=== PATIENT | female | born 1975 | race Caucasian/White ===

== ENCOUNTER 2020-06-20 13:59 | Outpatient (CLI) | payer BC, SELFPAY ==
[2020-06-20 14:28] LABS: Alanine Aminotransferase 22 U/L (4-35); Albumin Level 4.6 g/dL (3.5-5.1); Alkaline Phosphatase 92 U/L (38-126); Amylase 60 U/L (30-110); Aspartate Amino Transferase 24 U/L (14-36); Bilirubin,Total 0.6 mg/dL (0.2-1.3); Lipase 170 U/L (23-300)
== END 2020-06-20 14:00 | disposition home or self-care (01) ==
PROVIDERS: PCP Pediatrics; Visit Provider Surgery
DX: K80.10 Calculus of gallbladder with chronic cholecystitis without obstruction (principal); Z01.818 Encounter for other preprocedural examination
CPT/HCPCS: 36415; 80076; 82150; 83690; 86850; 86900; 86901

== ENCOUNTER → 2020-06-22 00:36 | Outpatient (CLI) | payer BC, SELFPAY ==
[2020-06-22 19:48] LABS: SARS-CoV-2 RNA PCR Negative
== END ==
PROVIDERS: PCP Pediatrics; Visit Provider Surgery
DX: Z01.812 Encounter for preprocedural laboratory examination (principal); Z20.822 Contact with and (suspected) exposure to COVID-19
CPT/HCPCS: C9803; U0003; U0005

== ENCOUNTER 2020-06-25 14:59 | Inpatient (IN) | payer BC, SELFPAY ==
[2020-06-19 13:26] VITALS: BMI 35.6
[2020-06-25] VITALS (10 sets, daily range): BP systolic 113–154; BP diastolic 67–86; PULSE 67–101; RESP 10–20; TEMP 36.2–37.1; O2SAT 98–100
--- NOTE | ~2020-06-25 | XR_ITS ---
XR cholangiogram surg 1st inj DATE: 06/25/2020 13:04 INDICATION: Right upper quadrant pain. Stones. TECHNIQUE: Digital spot C-arm images of the right upper quadrant during intraoperative injection of t he cystic duct remnant. 61.61 mGy 69.1 seconds fluoroscopy time COMPARISON: None FINDINGS: There is a filling defect of the distal common bile duct consistent with common bile duct s tone, with partial obstruction and resulting moderate dilatation of the common bile duct and intrahep atic bile ducts. The obstruction is not complete, with limited amount of contrast material reaching t he duodenum. IMPRESSION: Partially obstructing distal common bile duct stone with dilatation of the intrahepatic a nd extrahepatic bile ducts Reviewed, dictated and finalized at [facility]. Reviewed, dictated and finalized at [facility]. [facility] [employer] IMPRESSION: Partially obstructing distal common bile duct stone with dilatation of the intrahepatic and extrahepatic bile ducts
--- NOTE | ~2020-06-25 | XR_ITS ---
EXAMINATION: XR ERCP EXAM DATE: 06/26/2020 13:56 INDICATION: Stones. TECHNIQUE: Fluoroscopy used during XR ERCP performed by Dr. Major Lucero MD. The DAP for this procedure was 1.9 mGym2. Correlation made with cholangiogram dated 06/25/2020 FINDINGS: Images demonstrate ERCP scope, cannulation of the ampulla and injection of the common bile duct. Previously seen large distal choledocholithiasis is no longer identified. One image demonstrat es plasty balloon dilation. There is dilated biliary system. Correlate with procedure note. IMPRESSION: Biliary dilation. Reviewed, dictated and finalized at [facility]. [employer] IMPRESSION: Biliary dilation.
--- NOTE | 2020-06-25 09:10 | WPDHPUPDATE1 ---
History and Physical Update Update Date/Time: 06/25/20 09:10 History and Physical has been reviewed, including an updated exam of the patient. There are NO changes in the patient's condition. Risks, benefits, and alternatives have been discussed and questions answered. Patient agrees to proceed with procedure.
[2020-06-25] MEDS: ACETAMINOPHEN 500 MG TABLET 1000 MG PO (10:25)
[2020-06-25] MEDS: LACTATED RINGERS 1,000 ML 30 ML IV CONT ×2 (10:50→13:25)
[2020-06-25] MEDS: KETOROLAC 15 MG/ML VIAL (*BKC) IV PUSH (11:16)
--- NOTE | 2020-06-25 11:19 | WPDANESEPPF ---
Anes - Initial Pre Proc Eval Procedure: Operation Date: 06/25/20 13:00 Proposed Procedures p Laparoscopic Cholecystectomy - Albin Haynes MD Date/Time: 06/25/20 11:19 Surgeon: Albin Haynes MD Pre Op Diagnosis: Chronic Cholecystitis With Stones Patient Data Age: 45 Gender: F Height: 5 ft 6 in Weight: 107 kg Last Vital Signs Temp 36.4 C 06/25/20 10:26 Pulse 82 06/25/20 10:26 Resp 20 06/25/20 10:26 BP 125/73 06/25/20 10:26 Pulse Ox 100 06/25/20 10:26 Allergies Allergy/AdvReac Type Severity Reaction Status Date / Time No Known Allergies Allergy Verified 06/25/20 10:23 Home Medications Medication Instructions Recorded Confirmed Type medroxyprogesterone 150 mg/mL 150 mg IM [id number] 05/28/20 06/25/20 History intramuscular suspension Patient hx anesthesia problems: none Family hx anesthesia problems: none PMFSH Family History Family History Unknown Diabetes mellitus Heart disease Cancer Social History Social History Smoking status: Never smoker Alcohol intake: never Living arrangements: with family Spiritual care concerns: No Anes - Eval Final PreProcedure Day of Procedure 06/25/20 11:19 Patient weight: obese Heart: regular rate and rhythm Lungs: clear to auscultation Airway: Mallampati scale (capped front teeth) class II Neurological: alert and oriented Last oral intake: >/= 8 hours ASA classification: II Emergent: no Anesthetic plan: proceed Anesthesia type and monitoring: general ETT and standard monitoring Informed Consent: The patient's anesthetic plan and its attendant risks and benefits were discussed with the patient/family/POA. Questions were solicited and answers provided to the satisfaction of the patient/family/POA.
[2020-06-25] MEDS: SCOPOLAMINE 1.5 MG PATCH TRANSDERM (11:21)
--- NOTE | 2020-06-25 11:28 | SUR.PREOP ---
1125-PT UP TO BATHROOM TO VOID.
[2020-06-25] MEDS: ceFAZolin 2 GM/D5W 50 ML 2 GM/50 ML BAG IVPB (11:37)
[2020-06-25] MEDS: BUPIVACAINE/EPINEPHRINE 0.5% 30 ML VIAL INFILTRATE (12:02)
--- NOTE | 2020-06-25 13:50 | PM.PROC ---
Procedure Note - Detailed Date of procedure: 06/25/20 Pre-op diagnosis: Chronic Cholecystitis With Stones Chronic cholecystitis, cholelithiasis Post-op diagnosis: other (Choledocholithiasis with partial biliary ductal obstruction, chronic cholecystitis) Procedure performed: Laparoscopic cholecystectomy with intraoperative cholangiogram Description of procedure: The patient was taken to surgery and induced into general anesthesia. The abdomen was prepped and draped. Trocars were placed in the usual fashion using 0.5% Marcaine with epinephrine applied Medical optical trocars. A 5 mm camera was used. The gallbladder was decompressed with a laparoscopic aspirator. The cholecystotomy was closed with a Vicryl endoloop. There were numerous omental adhesions to the gallbladder. The gallbladder was quite long. The omentum was adherent to the gallbladder all the way down to the infundibulum and particularly adherent in the area of the infundibulum and cholecystohepatic triangle. Cautery as well as blunt and sharp dissection were required but eventually all these adhesions were taken down. The gallbladder was retracted anterosuperiorly. Traction was placed on the infundibulum and dissection was carried out in the cholecystohepatic triangle. There were a couple of extra lobules off the lateral segment of the left lobe of the liver which were obscuring our view. A 5th trocar was placed in the left mid abdomen. A blunt instrument was then used to retract these lobules so that we could see the biliary ductal structures more easily. After taking down these numerous adhesions, dissection of the gallbladder soon showed that there was severe dilatation of the cystic duct. Initially I was concerned that I had missed the anatomy and this was in fact the common bile duct. Then it appeared that possibly the gallbladder had two biliary ductal structures. To better define the anatomy, I went ahead and dissected the gallbladder completely free from the liver avoiding dissection in the cholecystohepatic triangle any further. The cystic artery was pretty clear and once the gallbladder was freed from the liver, I went ahead and clipped and divided the cystic artery. By now, it was evident that the cystic duct was quite dilated or that some anatomic variant was in play. I continued the dissection of the very long and dilated cystic duct and eventually the junction with the common bile duct was evident. The common bile duct was in fact dilated as well. I decided to go ahead with intraoperative cholangiogram. Cine fluoroscopy was brought into the field as well as the cholangiogram catheters and Omnipaque dye. A small opening was made in the upper aspect of the cystic duct and the cholangiogram catheter was placed within. The cystic duct was so dilated that initial attempts resulted in spillage of the contrast and no usable cholangiogram. I repositioned and again attempted cholangiography. This time we had a very good cholangiogram which showed extensive dilatation of the biliary ductal system. The biliary ductal extrahepatic system was intact with no injuries. There was evidence of a distal common bile duct stone which was partially obstructing although some contrast did get through into the duodenum. Two separate runs showed the duct stone. Radiology verified my intraoperative reading. I then divided the cystic duct. I ligated the cystic duct with an endoloop near its junction with the common bile duct. A couple of clips were placed above the endoloop as well. The gallbladder was extricated from the abdomen into an Endo-Catch bag. We then exposed the gallbladder fossa and right upper quadrant. It was irrigated and suctioned repeatedly. There had been very little diligent and only a small amount of bile spillage during the surgery. No stones had spilled. When the right upper quadrant was cleaned adequately and the irrigant had been suctioned away, I used the Burton-Larry sutur
--- NOTE | 2020-06-25 14:24 | SUR.PHASEI ---
[id number] sbar faxed floor notified
--- NOTE | 2020-06-25 15:05 | PC.NURSE ---
Patient to room 342 from post-op via hospital stretcher. Patient oriented to room and policies. Belongings with patient.
[2020-06-25 15:37] LABS: Estimated CRCL calculation 110 ml/min; Estimated Glomerular Filt Rate > 60
[2020-06-25] MEDS: LACTATED RINGERS 1,000 ML 100 ML IV CONT (15:39)
[2020-06-25] MEDS: ACETAMINOPHEN 500 MG TABLET PO (21:44)
[2020-06-25] MEDS: FAMOTIDINE 20 MG/2 ML VIAL IV PUSH (21:45)
[2020-06-25] MEDS: ONDANSETRON INJ 4 MG/2 ML VIAL IV PUSH (21:53)
[2020-06-26] VITALS (9 sets, daily range): BP systolic 100–147; BP diastolic 51–82; PULSE 74–88; RESP 14–20; TEMP 36.3–36.8; O2SAT 96–100
[2020-06-26] MEDS: LACTATED RINGERS 1,000 ML 100 ML IV CONT ×2 (02:29→17:33)
[2020-06-26 06:32] LABS: INR 1.1; Prothrombin Time 14.4 Seconds (11.1-14.7)
[2020-06-26 06:33] LABS: Partial Thromboplastin Time 26.2 SECONDS (22.3-36.8)
[2020-06-26 06:38] LABS: Alanine Aminotransferase 315 U/L (4-35); Albumin Level 4.1 g/dL (3.5-5.1); Alkaline Phosphatase 153 U/L (38-126); Anion Gap 8 mmol/L (8-16); Aspartate Amino Transferase 268 U/L (14-36); Bilirubin,Total 1.1 mg/dL (0.2-1.3); Blood Urea Nitrogen 4 mg/dL (7-17); Carbon Dioxide 30 mmol/L (22-30); Chloride 103 mmol/L (98-107); Estimated CRCL calculation 110 ml/min; Estimated Glomerular Filt Rate > 60; Glucose 109 mg/dL (65-105); Lipase 125 U/L (23-300); Potassium 3.2 mmol/L (3.4-5.0); Sodium 141 mmol/L (137-145)
[2020-06-26 06:40] LABS: Hematocrit 43.5 % (37.0-47.0); Hemoglobin 14.5 g/dL (12.0-15.0); Mean Corpuscular HGB Conc 33.3 g/dl (32-36); Mean Corpuscular Hemoglobin 28.8 pg (26-34); Mean Corpuscular Volume 86.3 fl (80-100); Mean Platelet Volume 10.8 fl (7.4-10.4); Platelet Count Result 286 k/mm3 (150-375); Red Blood Count 5.04 M/mm3 (4.2-5.4); Red Cell Distribution Width 11.9 % (11.5-14.5); White Blood Count 11.7 K/mm3 (4.5-10.0)
--- NOTE | 2020-06-26 07:34 | WPDANESPN ---
Anes - Prog Note Post-Op Date/Time: 06/26/20 07:34 Cardiovascular status: normal Respiratory status: normal Airway patency: baseline Mental status: baseline Post-Op hydration status: normal Vital Signs: Last Vital Signs Temp 36.3 C L 06/26/20 04:52 Pulse 74 06/26/20 04:52 Resp 14 06/26/20 04:52 BP 121/82 06/26/20 04:52 Pulse Ox 99 06/26/20 04:52 Pain Score (VAS): no complaints I/O: Intake & Output 06/25/20 06/25/20 06/26/20 15:59 23:59 07:59 Intake Total 300 1130 1500 Balance 300 1130 1500 Laboratory Tests 06/26/20 05:43 06/26/20 05:43 06/25/20 06/26/20 06/26/20 15:21 05:43 05:43 WBC 11.7 H RBC 5.04 Hgb 14.5 Hct 43.5 MCV 86.3 MCH 28.8 MCHC 33.3 RDW 11.9 Plt Count 286 MPV 10.8 H PT 14.4 INR 1.1 APTT 26.2 Sodium Potassium Chloride Carbon Dioxide Anion Gap BUN Creatinine 0.70 Estim Creat Clear Calc 110 Estimated GFR > 60 Glucose Calcium Total Bilirubin AST ALT Alkaline Phosphatase Total Protein Albumin Lipase 06/26/20 05:43 WBC RBC Hgb Hct MCV MCH MCHC RDW Plt Count MPV PT INR APTT Sodium 141 Potassium 3.2 L Chloride 103 Carbon Dioxide 30 Anion Gap 8 BUN 4 L Creatinine 0.70 Estim Creat Clear Calc 110 Estimated GFR > 60 Glucose 109 H Calcium 9.0 Total Bilirubin 1.1 AST 268 H ALT 315 H Alkaline Phosphatase 153 H Total Protein 7.0 Albumin 4.1 Lipase 125 Post-procedural complaints: none Patient Feedback: Patient satisfied with anesthetic care.
[2020-06-26] MEDS: FAMOTIDINE 20 MG/2 ML VIAL IV PUSH ×2 (08:34→21:05)
--- NOTE | 2020-06-26 09:39 | PM.PNGS ---
Progress Note: A&P Assessment and Plan (1) Choledocholithiasis: Code(s): K80.50 - Calculus of bile duct without cholangitis or cholecystitis without obstruction Status: Acute Assessment and Plan: Distal CBD stone found on IOC that appeared to be partially obstructing. AST, ALT, and alk phos slightly elevated this morning. Total bilirubin 1.1. GI consulted and appreciate their help. Plan for ERCP later today. (2) Chronic cholecystitis with calculus: Code(s): K80.10 - Calculus of gallbladder with chronic cholecystitis without obstruction Status: Acute Assessment and Plan: POD1 and doing well. Pain well-controlled. Okay to advance diet as tolerated to low fat diet after ERCP. Potassium 3.2 this morning. Will give IV KCL supplementation while NPO. Repeat labs tomorrow. Additional Plan Discussed plan of care with Dr. Haynes. Subjective Subjective Date/Time Seen: 06/26/20 09:39 Post Op day: 1 (lap marie with IOC) Patient reports: no new complaints, flatus and afebrile Interval history: Patient seen this morning and feeling well. Pain is well-controlled. Had a short episode of mild nausea this morning that subsided. Reports flatus. No other complaints. LFTs slightly elevated this morning. Review of Systems Review of Systems: All systems reviewed & are unremarkable except as noted in HPI and below Exam Const: General: comfortable, no acute distress, alert and awake Orientation/consciousness: patient oriented x3 Resp: Effort & Inspection: normal respiratory effort Auscultation: clear to auscultation bilaterally Cardio: Rate: regular rate Rhythm: regular rhythm GI: Inspection: non-distended and incision (Abdominal incisions clean and dry, glue intact.) GI Palp: Yes Soft to palpation and Yes Tenderness to palpation present (GI) (incisional) Auscultation: normal bowel sounds Skin: General skin exam: normal color Rashes: no rashes Neuro: General: moves all extremities and no focal motor deficits Cranial nerves: Yes CN's II-XII intact bilaterally Speech: normal speech and No Abnormal speech present Extrem: General: normal to inspection, no clubbing, cyanosis or edema and no calf tenderness Psych: Mental Status: mental status grossly normal Attitude: cooperative Thought process: Normal thought process present Thought content: Yes Normal thought content present Insight: Good insight present (Psych) Judgement: Good judgement present (Psych) Objective Data Vital Signs Vital Signs: Vital Signs - 24 hr 06/25/20 10:26 06/25/20 13:30 06/25/20 14:00 Temperature 97.6 F 97.1 F L Pulse Rate 82 67 68 Respiratory Rate 20 10 L 12 Blood Pressure 125/73 113/67 120/68 Pulse Oximetry 100 99 99 06/25/20 14:15 06/25/20 14:30 06/25/20 15:35 Temperature 97.4 F L Pulse Rate 78 72 82 Respiratory Rate 14 15 16 Blood Pressure 116/68 120/83 154/86 H Pulse Oximetry 98 99 100 06/25/20 15:50 06/25/20 16:20 06/25/20 17:20 Temperature 97.3 F L 97.9 F 98.8 F Pulse Rate 86 89 101 H Respiratory Rate 16 18 16 Blood Pressure 141/75 H 141/76 H 143/70 H Pulse Oximetry 99 100 100 06/25/20 19:40 06/26/20 04:52 Temperature 98.2 F 97.4 F L Pulse Rate 97 74 Respiratory Rate 16 14 Blood Pressure 147/76 H 121/82 Pulse Oximetry 98 99 Intake/Output Intake/Output: Intake & Output 06/23/20 06/24/20 06/25/20 06/26/20 23:59 23:59 23:59 23:59 Intake Total 1430 1500 Balance 1430 1500 Meds/Results Medications: Active Medications Generic Name Dose Route Start Last Admin Trade Name Freq PRN Reason Stop Dose Admin Acetaminophen 500 mg 06/25/20 14:59 06/25/20 21:44 Acetaminophen 500 Mg Tablet PO 500 mg Q6H PRN Administration Mild Pain (1-3) or Fever Hydrocodone Bitart/Acetaminophen 1 tab 06/25/20 14:59 Hydrocodone/Acetaminophen (*Crx) 5-325 Mg Tablet PO Q4H PRN Pain Rated 4-6 Hydrocodone Bitart/Acetaminophen 1 tab 06/25/20 14:59 Hydrocodone/Acetami
--- NOTE | 2020-06-26 11:47 | P.PNAN_ITS ---
Anes - Eval Final PreProcedure Day of Procedure 06/26/20 11:47 Patient weight: obese Heart: regular rate and rhythm Lungs: clear to auscultation Airway: Mallampati scale class II Neurological: alert and oriented Last oral intake: >/= 8 hours ASA classification: II Emergent: no Anesthetic plan: proceed Anesthesia type and monitoring: general ETT and standard monitoring Informed Consent: The patient's anesthetic plan and its attendant risks and eve efits were discussed with the patient/family/POA. Questions were solicited and answers provided to the satisfaction of the patient/family/POA.
[2020-06-26] MEDS: LACTATED RINGERS 1,000 ML 150 ML IV CONT (11:58)
--- NOTE | 2020-06-26 13:38 | WPDGICN ---
Assessment and Plan Assessment and plan (1) Abnormal cholangiogram: Code(s): R93.2 - Abnormal findings on diagnostic imaging of liver and biliary tract Status: Acute Assessment and Plan: will proceed with ercp today, risk and benefits explained to patient (2) Choledocholithiasis: Code(s): K80.50 - Calculus of bile duct without cholangitis or cholecystitis without obstruction Status: Acute Assessment and Plan: filing defect in bile duct consistent with stone, ERCP today more recommendations to follow (3) Elevated liver enzymes: Code(s): R74.8 - Abnormal levels of other serum enzymes Status: Acute Assessment and Plan: probably from recent lap marie but will assess also biliary duct system (4) Chronic cholecystitis with calculus: Code(s): K80.10 - Calculus of gallbladder with chronic cholecystitis without obstruction Status: Acute Assessment and Plan: recovering from surgery. (5) BMI 36.0-36.9,adult: Code(s): Z68.36 - Body mass index [BMI] 36.0-36.9, adult Status: Acute GI Consult Note Consult date/time: 06/26/20 13:38 Reason for consult: choledocholithiasis after cholecystectomy (abnormal IOC) HPI: Ivette Gardiner is a 45 year old female with no chronic medical problems who presented to see surgeon after had RUQ pain after eating fried and fatty foods more than a month ago, she was found to have cholelithiasis, probable chronic cholecystitis and she underwent lap marie yesterday without complications as outpatient by Dr Haynes, ICO showed partially obstructing distal common bile duct stone with dilatation of the intrahepatic and extrahepatic bile ducts. Primary decided to admit her for observation, started on antibiotics and get ERCP today to assess bile duct. She only has abdominal discomfort from recent surgery, no nausea. Bili normal, transaminases 200-300. Denies eoth use. No other surgeries. Review of Systems Constitutional: Constitutional: Denies headache(s) and Denies weakness Eyes: Eyes: Denies blurry vision ENT: Reports Normal hearing present, Denies headache(s) and Denies neck pain Cardiovascular: Cardiovascular: Denies chest pain and Denies dyspnea Respiratory: Respiratory: Denies dyspnea Gastrointestinal: Gastrointestinal: Reports no additional gastrointestinal complaints Genitourinary: Genitourinary: Denies dysuria Musculoskeletal: Musculoskeletal: Denies neck pain Integumentary/Breasts: Skin/Breast: Denies dry skin Neurologic: Reports Normal hearing present, Denies headache(s) and Denies weakness Psychiatric: Psychiatric: Denies anxiety Endocrine: Endocrine: Denies change in body appearance Hematologic/Lymphatic: Hematologic/Lymphatic: Denies easy bleeding Allergic/Immunologic: Allergic/Immunologic: Denies urticaria PMFSH Past Medical History Medical History (Updated 06/26/20 @ 15:24 by Major Lucero MD) Abnormal cholangiogram Elevated liver enzymes Family History Family History Unknown Diabetes mellitus Heart disease Cancer Social History Social History Smoking status: Never smoker Alcohol intake: never Living arrangements: with family Spiritual care concerns: No Meds Home Medications and Allergies Home Medications Medication Instructions Recorded Confirmed Type medroxyprogesterone 150 mg/mL 150 mg IM [id number] 05/28/20 06/25/20 History intramuscular suspension Allergies Allergy/AdvReac Type Severity Reaction Status Date / Time No Known Allergies Allergy Verified 06/26/20 11:49 Vital Signs Vital Signs - 24 hr 06/25/20 14:00 06/25/20 14:15 06/25/20 14:30 Temperature Pulse Rate 68 78 72 Respiratory Rate 12 14 15 Blood Pressure 120/68 116/68 120/83 Pulse Oximetry 99 98 99 06/25/20 15:35 06/25/20 15:50 06/25/20 16:20 Temperatu
[2020-06-26] MEDS: HYDROcodone/acetaminophen (*CRX) 5-325 MG TABLET 1 TAB PO (17:31)
[2020-06-26] MEDS: ONDANSETRON INJ 4 MG/2 ML VIAL IV PUSH (19:31)
[2020-06-26] MEDS: HYDROcodone/acetaminophen (*CRX) 7.5-325 MG TABLET 1 TAB PO (21:42)
[2020-06-27] MEDS: LACTATED RINGERS 1,000 ML 100 ML IV CONT ×2 (04:55→15:17)
[2020-06-27 05:52] LABS: Hematocrit 48.1 % (37.0-47.0); Hemoglobin 16.6 g/dL (12.0-15.0); Mean Corpuscular HGB Conc 34.5 g/dl (32-36); Mean Corpuscular Hemoglobin 29.6 pg (26-34); Mean Corpuscular Volume 85.9 fl (80-100); Mean Platelet Volume 10.6 fl (7.4-10.4); Platelet Count Result 328 k/mm3 (150-375); Red Cell Distribution Width 12.2 % (11.5-14.5); White Blood Count 19.8 K/mm3 (4.5-10.0)
[2020-06-27 06:00] VITALS: BP 175/95; PULSE 87; RESP 16; TEMP 35.9; O2SAT 100
[2020-06-27 06:12] LABS: Albumin Level 4.1 g/dL (3.5-5.1); Alkaline Phosphatase 212 U/L (38-126); Anion Gap 6 mmol/L (8-16); Aspartate Amino Transferase 519 U/L (14-36); Bilirubin,Total 1.7 mg/dL (0.2-1.3); Blood Urea Nitrogen 6 mg/dL (7-17); Calcium 8.7 mg/dL (8.4-10.2); Carbon Dioxide 30 mmol/L (22-30); Chloride 104 mmol/L (98-107); Estimated CRCL calculation 110 ml/min; Estimated Glomerular Filt Rate > 60; Glucose 159 mg/dL (65-105); Potassium 3.6 mmol/L (3.4-5.0); Sodium 140 mmol/L (137-145)
[2020-06-27 06:23] LABS: Alanine Aminotransferase 797 U/L (4-35)
[2020-06-27 06:44] VITALS: BP 155/82
--- NOTE | 2020-06-27 07:47 | WPDANESPN ---
Anes - Prog Note Post-Op Date/Time: 06/27/20 07:47 Cardiovascular status: normal Respiratory status: normal Airway patency: baseline Mental status: baseline Post-Op hydration status: normal Vital Signs: Last Vital Signs Temp 35.9 C L 06/27/20 06:00 Pulse 87 06/27/20 06:00 Resp 16 06/27/20 06:00 BP 155/82 H 06/27/20 06:44 Pulse Ox 100 06/27/20 06:00 Pain Score (VAS): 0 I/O: Intake & Output 06/26/20 06/26/20 06/27/20 15:59 23:59 07:59 Intake Total 088 377 5736 Output Total 900 Balance 800 -260 1600 Laboratory Tests 06/27/20 05:35 06/27/20 05:35 06/27/20 06/27/20 05:35 05:35 WBC 19.8 H RBC 5.60 H Hgb 16.6 H Hct 48.1 H MCV 85.9 MCH 29.6 MCHC 34.5 RDW 12.2 Plt Count 328 MPV 10.6 H Sodium 140 Potassium 3.6 Chloride 104 Carbon Dioxide 30 Anion Gap 6 L BUN 6 L Creatinine 0.70 Estim Creat Clear Calc 110 Estimated GFR > 60 Glucose 159 H Calcium 8.7 Total Bilirubin 1.7 H AST 519 H ALT 797 H Alkaline Phosphatase 212 H Total Protein 7.0 Albumin 4.1 Post-procedural complaints: none Patient Feedback: Patient satisfied with anesthetic care.
--- NOTE | 2020-06-27 07:50 | PM.DS ---
DS: Admitting Diagnosis Admitting Diagnosis Admitting Diagnosis: Chronic cholecystitis, cholelithiasis DS: Discharge Diagnosis Discharge Diagnosis (1) Choledocholithiasis with chronic cholecystitis: Onset Date: ~06/26/20 Code(s): K80.44 - Calculus of bile duct with chronic cholecystitis without obstruction Status: Acute DS: Summary Hospital Course Hospital Course: patient came in on June 25 for outpatient laparoscopic cholecystectomy. At surgery she was noted to have significant biliary ductal dilatation. Her preoperative imaging and preop LFTs were all normal regarding any biliary ductal stones. With the ductal dilatation noted at surgery, a cholangiogram was done. This showed a distal common bile duct partially obstructing stone. The patient was then kept overnight and Dr. Nava saw her in consultation. He went ahead with ERCP on 06/26/2020. ERCP did not show any gallstones but was suspicious for having passed a stone. She did have sphincterotomy and balloon sweep of the common bile duct. Occlusion cholangiogram was negative. The patient was observed overnight on 06/26. She had some trouble sleeping but was not really having any significant abdominal pain or problems eating on 06/27/2020. Her liver enzymes had increased. White blood cell count was also increased to 19,000. she was observed through the day and tolerated breakfast and lunch well. Dr. clifton discussed with Dr. Nava the patient's care. She was able to be discharged later in the day on 06/27/2020 in improved condition. Time Spent with Patient Time attestation: Total time spent providing and/or coordinating discharge services: Exam Const: General: comfortable and no acute distress; No confusion Orientation/consciousness: patient oriented x3 and No confusion GI: Inspection: non-distended and incision ( All incisions healing well) GI Palp: Yes abdominal tenderness ( Most consistent with incisional tenderness), Yes Soft to palpation, Yes Tenderness to palpation present (GI) ( generalized but no focal epigastric tenderness), No Guarding due to palpation present (GI) and No Rebound tenderness present Auscultation: Hypoactive bowel sounds present Neuro: General: patient oriented x3, no focal motor deficits and No confusion Extrem: General: no calf tenderness and no edema Psych: Affect: normal affect Insight: Good insight present (Psych) Judgement: Good judgement present (Psych) DS: Data Data Completed and Pending Pending studies at discharge: Pending at discharge 06/25/20 12:02 Surgical [PTH] Routine Labs on day of discharge: Labs from last 24 hours 06/27/20 06/27/20 05:35 05:35 WBC 19.8 H RBC 5.60 H Hgb 16.6 H Hct 48.1 H MCV 85.9 MCH 29.6 MCHC 34.5 RDW 12.2 Plt Count 328 MPV 10.6 H Sodium 140 Potassium 3.6 Chloride 104 Carbon Dioxide 30 Anion Gap 6 L BUN 6 L Creatinine 0.70 Estim Creat Clear Calc 110 Estimated GFR > 60 Glucose 159 H Calcium 8.7 Total Bilirubin 1.7 H AST 519 H ALT 797 H Alkaline Phosphatase 212 H Total Protein 7.0 Albumin 4.1 Discharge Plan Discharge Attending physician on discharge: Albin Clifton Consulting providers: Major Lucero ; Jayme Hernandez ; Joshua Najera ; Munira Hazel Discharging Clinician: Albin Clifton Anticipated Discharge Date/Time: 06/27/20 15:58 Patient Disposition: Home, Self-Care Activity: may shower, no straining and as tolerated Diet: low fat Wound Care Instructions: incision open to air Discharge Instructions: Remove the Scopolamine patch that was placed behind your ear in 72 hours or less. Wash your hands after touching. 1. May shower and wash over incisions with soap. 2. Call office for: -Wound increasingly painful or bleeding -Vomiting -Fever of greater than 101 degrees 3. Expect some blood on dressing and old blood on skin. 4.
[2020-06-27] MEDS: FAMOTIDINE 20 MG/2 ML VIAL IV PUSH ×2 (08:43→21:36)
[2020-06-27 09:19] LABS: Lipase 10482 U/L (23-300)
--- NOTE | 2020-06-27 13:22 | PM.PNGS ---
Progress Note: A&P Assessment and Plan (1) Post-ERCP acute pancreatitis: Code(s): K91.89 - Other postprocedural complications and disorders of digestive system; K85.90 - Acute pancreatitis without necrosis or infection, unspecified Status: Acute Assessment and Plan: Discussed with Dr. Nava. Will keep patient in house today and observe. Recheck labs and exam tomorrow. Possibly home tomorrow if doing better. (2) Choledocholithiasis with chronic cholecystitis: Code(s): K80.44 - Calculus of bile duct with chronic cholecystitis without obstruction Status: Acute Assessment and Plan: No stone noted at ERCP. Seems to have passed already. Recovering from laparoscopic surgery. Subjective Subjective Date/Time Seen: 06/27/20 13:22 Post Op day: 2 Patient reports: pain is less, no flatus, no bowel movement, afebrile and other (Insomnia, just does not feel good) Review of Systems Review of Systems: All systems reviewed & are unremarkable except as noted in HPI and below Constitutional: Constitutional: Denies chills, Reports daytime sleepiness, Reports difficulty sleeping, Reports fatigue, Denies fever(s), Denies headache(s), Reports lethargy and Reports poor appetite Cardiovascular: Cardiovascular: Denies chest pain and Denies dyspnea Respiratory: Respiratory: Denies cough and Denies dyspnea Gastrointestinal: Gastrointestinal: Reports as per HPI, Denies abdominal pain and Denies heartburn Neurologic: Denies confusion and Denies headache(s) Exam Const: General: no acute distress, alert, awake, ill appearing, lethargic, tired appearing and uncomfortable; No confusion Nutritional Appearance: average body habitus Orientation/consciousness: patient oriented x3 and No confusion GI: Inspection: non-distended and incision (Incisions healing well) GI Palp: Yes Soft to palpation, Yes Tenderness to palpation present (GI) (Mild diffuse tenderness consistent with incisional pain), No Guarding due to palpation present (GI) and No Rebound tenderness present Auscultation: Hypoactive bowel sounds present Neuro: General: patient oriented x3, no focal motor deficits and No confusion Extrem: General: no calf tenderness and no edema Psych: Affect: normal affect Insight: Good insight present (Psych) Judgement: Good judgement present (Psych) Objective Data Vital Signs Vital Signs: Vital Signs - 24 hr 06/26/20 13:45 06/26/20 13:55 06/26/20 14:05 Temperature 36.4 C Pulse Rate 84 76 78 Respiratory Rate 16 18 18 Blood Pressure 114/63 100/61 104/54 L Pulse Oximetry 97 100 99 06/26/20 14:15 06/26/20 14:25 06/26/20 14:35 Temperature Pulse Rate 74 76 74 Respiratory Rate 18 20 18 Blood Pressure 102/54 L 103/51 L 105/60 Pulse Oximetry 98 97 96 06/26/20 22:00 06/27/20 06:00 06/27/20 06:44 Temperature 36.7 C 35.9 C L Pulse Rate 88 87 Respiratory Rate 16 16 Blood Pressure 147/79 H 175/95 H 155/82 H Pulse Oximetry 100 100 Intake/Output Intake/Output: Intake & Output 06/24/20 06/25/20 06/26/20 06/27/20 23:59 23:59 23:59 23:59 Intake Total 1430 2940 2130 Output Total 900 Balance 1430 2040 2130 Meds/Results Medications: Active Medications Generic Name Dose Route Start Last Admin Trade Name Freq PRN Reason Stop Dose Admin Acetaminophen 500 mg 06/25/20 14:59 06/25/20 21:44 Acetaminophen 500 Mg Tablet PO 500 mg Q6H PRN Administration Mild Pain (1-3) or Fever Hydrocodone Bitart/Acetaminophen 1 tab 06/25/20 14:59 06/26/20 17:31 Hydrocodone/Acetaminophen (*Crx) 5-325 Mg Tablet PO 1 tab Q4H PRN Administration Pain Rated 4-6 Hydrocodone Bitart/Acetaminophen 1 tab 06/25/20 14:59 06/26/20 21:42 Hydrocodone/Acetaminophen (*Crx) 7.5-325 Mg Tablet PO 1 tab Q4H PRN Administration Pain Rated 7-10 Famotidine 20 mg 06/25/20 21:00 06/27/20 08:43 Famotidine 20 Mg/2 Ml Vial IV PUSH 20 mg Q12HR BALAJI Administration Lactated R
[2020-06-27 14:00] VITALS: BP 146/85; PULSE 94; RESP 16; TEMP 36.9; O2SAT 100
--- NOTE | 2020-06-27 14:51 | WPDGIPROGNO ---
Progress Note: A&P Assessment and Plan (1) Post-ERCP acute pancreatitis: Code(s): K91.89 - Other postprocedural complications and disorders of digestive system; K85.90 - Acute pancreatitis without necrosis or infection, unspecified Status: Acute Assessment and Plan: had emesis and some pain this morning, continue to monitor, iv hydration and will repeat labs in the morning to reassess liquid diet for now (2) Choledocholithiasis with chronic cholecystitis: Code(s): K80.44 - Calculus of bile duct with chronic cholecystitis without obstruction Status: Acute Assessment and Plan: ercp yesterday with sphincterotomy and clear bile after sweeping (3) Elevated liver enzymes: Code(s): R74.8 - Abnormal levels of other serum enzymes Status: Acute Assessment and Plan: probably from recent cholecystectomy and ercp, monitor Subjective Date/time seen: 06/27/20 14:51 Interval history: yesterday could not sleep well and had one episode of emesis, today minimal upper abdominal discomfort Review of Systems Review of Systems: All systems reviewed & are unremarkable except as noted in HPI and below Exam Const: General: no acute distress, alert, awake and tired appearing; No confusion Nutritional Appearance: average body habitus Orientation/consciousness: patient oriented x3 HENMT: General nose exam: Normal nares present Eyes: General: appearance normal, both eyes and all related structures Neck: Neck: no JVD Resp: Effort & Inspection: normal respiratory effort Cardio: Rate: regular rate GI: Inspection: non-distended and incision (Incisions healing well) GI Palp: Yes Soft to palpation, Yes Tenderness to palpation present (GI) (Mild diffuse tenderness consistent with incisional pain), No Guarding due to palpation present (GI) and No Rebound tenderness present Auscultation: Hypoactive bowel sounds present Skin: General skin exam: normal color Neuro: General: patient oriented x3, no focal motor deficits and No confusion Speech: normal speech Extrem: General: no calf tenderness and no edema Psych: Affect: normal affect Insight: Good insight present (Psych) Judgement: Good judgement present (Psych) Objective Data Vital Signs Vital Signs: Vital Signs - 24 hr 06/26/20 22:00 06/27/20 06:00 06/27/20 06:44 Temperature 98.1 F 96.6 F L Pulse Rate 88 87 Respiratory Rate 16 16 Blood Pressure 147/79 H 175/95 H 155/82 H Pulse Oximetry 100 100 06/27/20 14:00 Temperature 98.5 F Pulse Rate 94 Respiratory Rate 16 Blood Pressure 146/85 H Pulse Oximetry 100 Intake/Output Intake/Output: Intake & Output 06/24/20 06/25/20 06/26/20 06/27/20 23:59 23:59 23:59 23:59 Intake Total 1430 2940 2550 Output Total 900 1200 Balance 1430 2040 1350 Meds/Results Medications: Active Medications Generic Name Dose Route Start Last Admin Trade Name Freq PRN Reason Stop Dose Admin Acetaminophen 500 mg 06/25/20 14:59 06/25/20 21:44 Acetaminophen 500 Mg Tablet PO 500 mg Q6H PRN Administration Mild Pain (1-3) or Fever Hydrocodone Bitart/Acetaminophen 1 tab 06/25/20 14:59 06/26/20 17:31 Hydrocodone/Acetaminophen (*Crx) 5-325 Mg Tablet PO 1 tab Q4H PRN Administration Pain Rated 4-6 Hydrocodone Bitart/Acetaminophen 1 tab 06/25/20 14:59 06/26/20 21:42 Hydrocodone/Acetaminophen (*Crx) 7.5-325 Mg Tablet PO 1 tab Q4H PRN Administration Pain Rated 7-10 Famotidine 20 mg 06/25/20 21:00 06/27/20 08:43 Famotidine 20 Mg/2 Ml Vial IV PUSH 20 mg Q12HR BALAJI Administration Lactated Ringer's 1,000 mls @ 100 mls/hr 06/25/20 14:59 06/27/20 05:25 Lr - Lactated Ringers Iv IV CONT 100 mls/hr .Q10H BALAJI Infusion Piperacillin/Tazobactam/Dextrose 3.375 gm in 50 mls @ 100 mls/hr 06/25/20 22:00 06/27/20 10:59 Zosyn 3.375 Gm/D5w 50ml Pm IVPB Infused Q6H BALAJI Infusion Morphine Sulfate 1 mg 06/25/20 14:59 Morphine Carpenter
[2020-06-27 21:37] VITALS: BP 166/75; PULSE 95; RESP 16; TEMP 36.4; O2SAT 98
[2020-06-27] MEDS: traZODone HCL 50 MG TABLET PO (21:37)
[2020-06-28] MEDS: LACTATED RINGERS 1,000 ML 100 ML IV CONT ×2 (03:04→13:36)
[2020-06-28 05:44] VITALS: BP 146/80; PULSE 98; RESP 16; TEMP 36; O2SAT 96
[2020-06-28 06:05] LABS: Hematocrit 49.1 % (37.0-47.0); Hemoglobin 16.7 g/dL (12.0-15.0); Mean Corpuscular Hemoglobin 29.3 pg (26-34); Mean Corpuscular Volume 86.1 fl (80-100); Mean Platelet Volume 10.9 fl (7.4-10.4); Platelet Count Result 311 k/mm3 (150-375); Red Cell Distribution Width 12.5 % (11.5-14.5); White Blood Count 29.7 K/mm3 (4.5-10.0)
[2020-06-28 06:17] LABS: Alanine Aminotransferase 376 U/L (4-35); Albumin Level 3.6 g/dL (3.5-5.1); Alkaline Phosphatase 152 U/L (38-126); Anion Gap 4 mmol/L (8-16); Aspartate Amino Transferase 90 U/L (14-36); Bilirubin,Total 1.6 mg/dL (0.2-1.3); Blood Urea Nitrogen 5 mg/dL (7-17); Calcium 8.2 mg/dL (8.4-10.2); Carbon Dioxide 32 mmol/L (22-30); Chloride 98 mmol/L (98-107); Estimated CRCL calculation 110 ml/min; Estimated Glomerular Filt Rate > 60; Glucose 144 mg/dL (65-105); Potassium 3.2 mmol/L (3.4-5.0); Sodium 134 mmol/L (137-145)
[2020-06-28 06:30] LABS: Lipase 2678 U/L (23-300)
[2020-06-28] MEDS: FAMOTIDINE 20 MG/2 ML VIAL IV PUSH ×2 (09:28→20:37)
--- NOTE | 2020-06-28 10:50 | PM.PNGS ---
Progress Note: A&P Assessment and Plan (1) Post-ERCP acute pancreatitis: Code(s): K91.89 - Other postprocedural complications and disorders of digestive system; K85.90 - Acute pancreatitis without necrosis or infection, unspecified Status: Acute Assessment and Plan: Will keep patient in house today and observe. liver function tests improved and lipase down significantly but still elevated at 2600. Also white count went up to 29,000 so recheck this in the morning. Recheck labs and exam tomorrow. Possibly home tomorrow if doing better. Continue to allow patient to choose from a low-fat diet menu. Have patient use a Dulcolax suppository today if no bowel movement recently. (2) Choledocholithiasis with chronic cholecystitis: Code(s): K80.44 - Calculus of bile duct with chronic cholecystitis without obstruction Status: Acute Assessment and Plan: No stone noted at ERCP. Seems to have passed already. Recovering from laparoscopic surgery. Subjective Subjective Date/Time Seen: 06/28/20 10:50 Post Op day: 3 (Patient states she has light ache in the abdomen otherwise feels okay.) Interval history: patient lying in bed when I entered the room. States she has not had a bowel movement yet. Is passing some gas. Is not nauseated. States that her bed is uncomfortable to try to sleep in. Tolerated a low-fat diet for breakfast. Review of Systems Review of Systems: All systems reviewed & are unremarkable except as noted in HPI and below Constitutional: Constitutional: Denies chills, Reports daytime sleepiness, Reports difficulty sleeping, Reports fatigue, Denies fever(s), Denies headache(s), Reports lethargy and Reports poor appetite ENT: Denies headache(s) Cardiovascular: Cardiovascular: Denies chest pain and Denies dyspnea Respiratory: Respiratory: Denies cough and Denies dyspnea Gastrointestinal: Gastrointestinal: Reports as per HPI, Reports abdominal pain ( Mild ache in the mid abdomen extending through to the back) and Denies heartburn Genitourinary: Genitourinary: Reports no additional female genitourinary complaints Musculoskeletal: Musculoskeletal: Reports no additional musculoskeletal complaints Neurologic: Denies Abnormal speech present, Denies confusion and Denies headache(s) Psychiatric: Psychiatric: Denies confusion Endocrine: Endocrine: Reports fatigue Exam Const: General: no acute distress, alert, awake, ill appearing, lethargic, tired appearing and uncomfortable; No confusion Nutritional Appearance: average body habitus Orientation/consciousness: patient oriented x3, No confusion and lethargic Resp: Effort & Inspection: normal respiratory effort Auscultation: clear to auscultation bilaterally Cardio: Rate: regular rate Rhythm: regular rhythm GI: Inspection: non-distended and incision (Incisions healing well) Auscultation: Hypoactive bowel sounds present Skin: General skin exam: normal color Rashes: no rashes Neuro: General: patient oriented x3, moves all extremities, no focal motor deficits and No confusion Cranial nerves: Yes CN's II-XII intact bilaterally Speech: normal speech and No Abnormal speech present Extrem: General: normal to inspection, no clubbing, cyanosis or edema, no calf tenderness and no edema Psych: Mental Status: mental status grossly normal Affect: normal affect Attitude: cooperative Thought process: Normal thought process present Insight: Good insight present (Psych) Judgement: Good judgement present (Psych) Objective Data Vital Signs Vital Signs: Vital Signs - 24 hr 06/27/20 14:00 06/27/20 21:37 06/28/20 05:44 Temperature 36.9 C 36.4 C 36.0 C L Pulse Rate 94 95 98 Respiratory Rate 16 16 16 Blood Pressure 146/85 H 166/75 H 146/80 H Pulse Oximetry 100 98 96 Intake/Output Intake/Output: Intake & Output 06/25/20 06/26/20 06/27/20 06/28/20 23:59 23:59 23:59 23:59 Intake Total 1430 2940 4130 1385 Output Total 900 1200 Ba
[2020-06-28] MEDS: BISACODYL 10 MG SUPPOSITORY RECTAL (12:28)
[2020-06-28 14:00] VITALS: BP 146/83; PULSE 112; RESP 16; TEMP 36.4; O2SAT 96
--- NOTE | 2020-06-28 16:33 | WPDGIPROGNO ---
Progress Note: A&P Assessment and Plan (1) Elevated liver enzymes: Code(s): R74.8 - Abnormal levels of other serum enzymes Status: Acute Assessment and Plan: trending down, probably from recent lap marie and ERCP (2) Post-ERCP acute pancreatitis: Code(s): K91.89 - Other postprocedural complications and disorders of digestive system; K85.90 - Acute pancreatitis without necrosis or infection, unspecified Status: Acute Assessment and Plan: clinically she is doing ok, tolerating diet and no much of pain lipase trending down (3) Choledocholithiasis with chronic cholecystitis: Code(s): K80.44 - Calculus of bile duct with chronic cholecystitis without obstruction Status: Acute (4) Leukocytosis: Code(s): D72.829 - Elevated white blood cell count, unspecified Status: Acute Assessment and Plan: higher today, she is covered with zosyn but no signs of infection probably from recent pancreatitis, stress response repeat in the morning and hopefully can go home soon Subjective Date/time seen: 06/28/20 16:33 Interval history: no nausea or vomiting and tolerating diet, minimal epigastric discomfort only Review of Systems Review of Systems: All systems reviewed & are unremarkable except as noted in HPI and below Exam Const: General: comfortable and no acute distress HENMT: General nose exam: Normal nares present Eyes: General: appearance normal, both eyes and all related structures Neck: Neck: no JVD Resp: Auscultation: clear to auscultation bilaterally Cardio: Rate: regular rate Rhythm: regular rhythm GI: Inspection: non-distended GI Palp: Yes Soft to palpation, No Tenderness to palpation present (GI) and No Guarding due to palpation present (GI) Auscultation: normal bowel sounds Skin: General skin exam: normal color Neuro: General: gait normal Speech: normal speech Extrem: General: normal to inspection Psych: Mental Status: mental status grossly normal Objective Data Vital Signs Vital Signs: Vital Signs - 24 hr 06/27/20 21:37 06/28/20 05:44 06/28/20 14:00 Temperature 97.6 F 96.8 F L 97.6 F Pulse Rate 95 98 112 H Respiratory Rate 16 16 16 Blood Pressure 166/75 H 146/80 H 146/83 H Pulse Oximetry 98 96 96 Intake/Output Intake/Output: Intake & Output 06/25/20 06/26/20 06/27/20 06/28/20 23:59 23:59 23:59 23:59 Intake Total 1430 2940 4130 2850 Output Total 900 1200 Balance 1430 2040 2930 2850 Meds/Results Medications: Active Medications Generic Name Dose Route Start Last Admin Trade Name Freq PRN Reason Stop Dose Admin Acetaminophen 500 mg 06/25/20 14:59 06/25/20 21:44 Acetaminophen 500 Mg Tablet PO 500 mg Q6H PRN Administration Mild Pain (1-3) or Fever Hydrocodone Bitart/Acetaminophen 1 tab 06/25/20 14:59 06/26/20 17:31 Hydrocodone/Acetaminophen (*Crx) 5-325 Mg Tablet PO 1 tab Q4H PRN Administration Pain Rated 4-6 Hydrocodone Bitart/Acetaminophen 1 tab 06/25/20 14:59 06/26/20 21:42 Hydrocodone/Acetaminophen (*Crx) 7.5-325 Mg Tablet PO 1 tab Q4H PRN Administration Pain Rated 7-10 Bisacodyl 10 mg 06/28/20 11:50 06/28/20 12:28 Bisacodyl 10 Mg Suppository RECTAL 10 mg QAM PRN Administration Constipation Famotidine 20 mg 06/25/20 21:00 06/28/20 09:28 Famotidine 20 Mg/2 Ml Vial IV PUSH 20 mg Q12HR BALAJI Administration Lactated Ringer's 1,000 mls @ 100 mls/hr 06/25/20 14:59 06/28/20 13:36 Lr - Lactated Ringers Iv IV CONT 100 mls/hr .Q10H BALAJI Administration Piperacillin/Tazobactam/Dextrose 3.375 gm in 50 mls @ 100 mls/hr 06/25/20 22:00 06/28/20 16:22 Zosyn 3.375 Gm/D5w 50ml Pm IVPB 100 mls/hr Q6H BALAJI Administration Morphine Sulfate 1 mg 06/25/20 14:59 Morphine Sulfate (*Crx) 2 Mg/Ml Inj IV PUSH Q2H PRN Pain Rated 4-6 Morphine Sulfate 2 mg 06/25/20 14:59 Morphine Sulfate (*Crx) 4 Mg/Ml Inj IV PUSH Q2H
[2020-06-28 19:42] VITALS: BP 159/89; PULSE 124; RESP 14; TEMP 36.9; O2SAT 95
[2020-06-29] MEDS: LACTATED RINGERS 1,000 ML 100 ML IV CONT (00:34)
[2020-06-29 05:48] VITALS: BP 151/80; PULSE 112; RESP 14; TEMP 36.4; O2SAT 94
[2020-06-29 06:06] LABS: Hematocrit 44.1 % (37.0-47.0); Hemoglobin 15.2 g/dL (12.0-15.0); Mean Corpuscular HGB Conc 34.5 g/dl (32-36); Mean Corpuscular Hemoglobin 28.8 pg (26-34); Mean Corpuscular Volume 83.5 fl (80-100); Mean Platelet Volume 10.8 fl (7.4-10.4); Platelet Count Result 293 k/mm3 (150-375); Red Blood Count 5.28 M/mm3 (4.2-5.4); Red Cell Distribution Width 12.1 % (11.5-14.5); White Blood Count 25.5 K/mm3 (4.5-10.0)
[2020-06-29 06:24] LABS: Alanine Aminotransferase 191 U/L (4-35); Albumin Level 3.2 g/dL (3.5-5.1); Alkaline Phosphatase 129 U/L (38-126); Anion Gap 3 mmol/L (8-16); Aspartate Amino Transferase 42 U/L (14-36); Bilirubin,Total 1.7 mg/dL (0.2-1.3); Blood Urea Nitrogen 11 mg/dL (7-17); Calcium 7.9 mg/dL (8.4-10.2); Carbon Dioxide 30 mmol/L (22-30); Chloride 95 mmol/L (98-107); Estimated CRCL calculation 150 ml/min; Estimated Glomerular Filt Rate > 60; Glucose 146 mg/dL (65-105); Magnesium 1.7 mg/dL (1.6-2.3); Potassium 2.8 mmol/L (3.4-5.0); Sodium 128 mmol/L (137-145)
[2020-06-29 06:57] LABS: Band Neutrophils Percent 11 % (0-6); Lymphocytes Absolute Manual 1.78 K/mm3 (1.1-4.5); Monocytes Absolute Manual 0.51 K/mm3 (0.1-0.90); Monocytes Percent Manual 2 % (3-9); Neutrophils Percent Manual 80 % (46-73); Total Cells Counted 100
[2020-06-29 06:58] LABS: Platelet Estimate Adequate (Adequate)
[2020-06-29 08:00] VITALS: PULSE 112; RESP 14; O2SAT 94
[2020-06-29] MEDS: FAMOTIDINE 20 MG/2 ML VIAL IV PUSH (08:04)
[2020-06-29 09:47] LABS: Lipase 404 U/L (23-300)
--- NOTE | 2020-06-29 10:15 | PM.DS ---
DS: Admitting Diagnosis Admitting Diagnosis Admitting Diagnosis: 1. Choledocholithiasis 2.Chronic cholecystitis with cholelithiasis DS: Discharge Diagnosis Discharge Diagnosis (1) Choledocholithiasis with chronic cholecystitis: Onset Date: ~06/26/20 Code(s): K80.44 - Calculus of bile duct with chronic cholecystitis without obstruction Status: Acute Assessment and Plan: this was the main reason for the patient's admission. This was noted on IOC during her laparoscopic cholecystectomy. Dilated ducts were noted therefore she was admitted labs completed the next day and ERCP completed by Dr. Nava. She is gradually recovering. (2) BMI 36.0-36.9,adult: Code(s): Z68.36 - Body mass index [BMI] 36.0-36.9, adult Status: Acute (3) Post-ERCP acute pancreatitis: Onset Date: ~06/27/20 Code(s): K91.89 - Other postprocedural complications and disorders of digestive system; K85.90 - Acute pancreatitis without necrosis or infection, unspecified Status: Acute Assessment and Plan: Patient had elevated lipase following her ERCP. She had mild upper jaw abdominal discomfort but not terrible. She is recovering well. She is maintain a low-fat diet and her lipase is coming down gradually. On the day of discharge it was down to 404. (4) Elevated liver enzymes: Onset Date: ~06/27/20 Code(s): R74.8 - Abnormal levels of other serum enzymes Status: Acute Assessment and Plan: These are gradually improving through her hospitalization. (5) Leukocytosis: Onset Date: ~06/28/20 Code(s): D72.829 - Elevated white blood cell count, unspecified Status: Acute Assessment and Plan: 06/28/2020 -- Down slightly to 24,000 on day of discharge. She will have repeat labs 2 days after discharge. DS: Summary Hospital Course Reason for hospitalization: Choledocholithiasis with recent chronic cholecystitis and cholelithiasis status post laparoscopic cholecystectomy. Hospital Course: patient had uneventful hospital course. Pain was well controlled. She tolerated a low-fat diet and her liver function tests and lipase continued improvement. She did spike her white count up to 29,000 on this is down to 24,000 on the date of discharge. Patient is without much pain. Only took Tylenol once yesterday. She knows to follow up with Dr. Antoine at the end of this coming week and with Dr. Nava in about 2-3 weeks. Incisions clean and dry. potassium was down to 2.8 on the day of discharge so she received a potassium rider the morning of discharge. I will send her home with 5 days of potassium pills to catch her back up on this. She is not on any medications which obviously would cause hypokalemia. Time spent discussing smoking cessation with patient: more than 10 minutes Status at Discharge Cognitive/behavioral status at discharge: normal Functional status at discharge: independent ambulation Overall status at discharge: patient is not back to baseline ( Moving slower but otherwise all doing well.) Time Spent with Patient Time attestation: Total time spent providing and/or coordinating discharge services: Time spent: Greater than 30 minutes Specific discharge activities: see separate home instruction sheet Exam Const: General: cooperative, no acute distress, alert and awake Orientation/consciousness: patient oriented x3 HENMT: Mouth: Yes moist mucous membranes Neck: Neck: normal visual inspection Chest: Chest palpation & inspection: normal inspection of the chest Resp: Effort & Inspection: normal respiratory effort Auscultation: clear to auscultation bilaterally Cardio: Jugular venous distension: no JVD Rate: regular rate Rhythm: regular rhythm GI: Inspection: normal to inspection and incision ( Clean and dry with no erythema.) GI Palp: No abdominal tenderness Auscultation: normal bowel sounds Rectal Exam: deferred Neuro:
--- NOTE | 2020-06-29 10:23 | WPDGIPROGNO ---
Progress Note: A&P Assessment and Plan (1) Post-ERCP acute pancreatitis: Onset Date: ~06/27/20 Code(s): K91.89 - Other postprocedural complications and disorders of digestive system; K85.90 - Acute pancreatitis without necrosis or infection, unspecified Status: Acute Assessment and Plan: clinically she is doing ok, tolerating diet and no much of pain lipase trending down she will get potassium before going home (2) Elevated liver enzymes: Onset Date: ~06/27/20 Code(s): R74.8 - Abnormal levels of other serum enzymes Status: Acute Assessment and Plan: trending down, probably from recent lap marie and ERCP she can go home with follow-up office in 2-3 weeks and repeat labs (3) Leukocytosis: Onset Date: ~06/28/20 Code(s): D72.829 - Elevated white blood cell count, unspecified Status: Acute Assessment and Plan: trending down, no fever, she is on zosyn (4) Choledocholithiasis with chronic cholecystitis: Onset Date: ~06/26/20 Code(s): K80.44 - Calculus of bile duct with chronic cholecystitis without obstruction Status: Acute Subjective Date/time seen: 06/29/20 10:23 Interval history: no more pain and she has been tolerating diet, just tired because has not been able to sleep much. she would like to go home Review of Systems Review of Systems: All systems reviewed & are unremarkable except as noted in HPI and below Exam Const: General: comfortable and no acute distress HENMT: General nose exam: Normal nares present Eyes: General: appearance normal, both eyes and all related structures Neck: Neck: no JVD Resp: Auscultation: clear to auscultation bilaterally Cardio: Rate: regular rate Rhythm: regular rhythm GI: Inspection: non-distended GI Palp: Yes Soft to palpation and No Guarding due to palpation present (GI) Auscultation: normal bowel sounds Skin: General skin exam: normal color Neuro: General: gait normal Speech: normal speech Extrem: General: normal to inspection Psych: Mental Status: mental status grossly normal Objective Data Vital Signs Vital Signs: Vital Signs - 24 hr 06/28/20 14:00 06/28/20 19:42 06/29/20 05:48 Temperature 97.6 F 98.4 F 97.6 F Pulse Rate 112 H 124 H 112 H Respiratory Rate 16 14 14 Blood Pressure 146/83 H 159/89 H 151/80 H Pulse Oximetry 96 95 94 Intake/Output Intake/Output: Intake & Output 06/26/20 06/27/20 06/28/20 06/29/20 23:59 23:59 23:59 23:59 Intake Total 2940 4130 3070 1550 Output Total 900 1200 50 200 Balance 2040 2930 3020 1350 Meds/Results Medications: Active Medications Generic Name Dose Route Start Last Admin Trade Name Freq PRN Reason Stop Dose Admin Acetaminophen 500 mg 06/25/20 14:59 06/25/20 21:44 Acetaminophen 500 Mg Tablet PO 500 mg Q6H PRN Administration Mild Pain (1-3) or Fever Hydrocodone Bitart/Acetaminophen 1 tab 06/25/20 14:59 06/26/20 17:31 Hydrocodone/Acetaminophen (*Crx) 5-325 Mg Tablet PO 1 tab Q4H PRN Administration Pain Rated 4-6 Hydrocodone Bitart/Acetaminophen 1 tab 06/25/20 14:59 06/26/20 21:42 Hydrocodone/Acetaminophen (*Crx) 7.5-325 Mg Tablet PO 1 tab Q4H PRN Administration Pain Rated 7-10 Bisacodyl 10 mg 06/28/20 11:50 06/28/20 12:28 Bisacodyl 10 Mg Suppository RECTAL 10 mg QAM PRN Administration Constipation Famotidine 20 mg 06/25/20 21:00 06/29/20 08:04 Famotidine 20 Mg/2 Ml Vial IV PUSH 20 mg Q12HR BALAJI Administration Lactated Ringer's 1,000 mls @ 100 mls/hr 06/25/20 14:59 06/29/20 00:34 Lr - Lactated Ringers Iv IV CONT 100 mls/hr .Q10H BALAJI Administration Piperacillin/Tazobactam/Dextrose 3.375 gm in 50 mls @ 100 mls/hr 06/25/20 22:00 06/29/20 10:20 Zosyn 3.375 Gm/D5w 50ml Pm IVPB 100 mls/hr Q6H BALAJI Administration Potassium Chloride 500 mls @ 125 mls/hr 06/29/20 06:52 06/29/20 07:31 Kcl 40 Meq/D5w 500 Ml Periphera
== END 2020-06-29 14:00 | disposition home or self-care (01) | DRG 417 ==
LOC: ANH3MED 06-26 01:42
PROVIDERS: Internal Medicine Gastroenterology; Nurse Practitioner Family; Admitting Provider Surgery; PCP Pediatrics; Visit Provider Surgery
PROC: 0FT44ZZ Resection of Gallbladder, Percutaneous Endoscopic Approach (ICD-10-PCS; CPT 47562; principal; 2020-06-25 13:00)
PROC: 0F798ZZ Dilation of Common Bile Duct, Via Natural or Artificial Opening Endoscopic (ICD-10-PCS; CPT 43260; principal; 2020-06-26 13:30)
DX: K80.45 Calculus of bile duct with chronic cholecystitis with obstruction (principal); K85.90 Acute pancreatitis without necrosis or infection, unspecified; K91.89 Other postprocedural complications and disorders of digestive system; K82.8 Other specified diseases of gallbladder; K83.8 Other specified diseases of biliary tract; K31.9 Disease of stomach and duodenum, unspecified; R74.8 Abnormal levels of other serum enzymes; D72.829 Elevated white blood cell count, unspecified
CPT/HCPCS: 36415; 74300; 74329; 80053; 82565; 83690; 83735; 85025; 85027; 85610; 85730; 88304; A9270; C1713; J0690; J1100; J1885; J2250; J2405; J2543; J2704; J2710; J3010; J3480; J7120; Q9966

== ENCOUNTER 2020-07-01 10:33 | Outpatient (CLI) | payer BC, SELFPAY ==
[2020-07-01 11:00] LABS: Hematocrit 39.2 % (37.0-47.0); Hemoglobin 13.4 g/dL (12.0-15.0); Mean Corpuscular HGB Conc 34.2 g/dl (32-36); Mean Corpuscular Hemoglobin 29.3 pg (26-34); Mean Corpuscular Volume 85.6 fl (80-100); Mean Platelet Volume 9.9 fl (7.4-10.4); Platelet Count Result 322 k/mm3 (150-375); Red Blood Count 4.58 M/mm3 (4.2-5.4); Red Cell Distribution Width 12.2 % (11.5-14.5); White Blood Count 22.8 K/mm3 (4.5-10.0)
[2020-07-01 11:13] LABS: Alanine Aminotransferase 184 U/L (4-35); Albumin Level 3.2 g/dL (3.5-5.1); Alkaline Phosphatase 200 U/L (38-126); Anion Gap 6 mmol/L (8-16); Aspartate Amino Transferase 126 U/L (14-36); Bilirubin,Total 1.4 mg/dL (0.2-1.3); Blood Urea Nitrogen 6 mg/dL (7-17); Calcium 7.9 mg/dL (8.4-10.2); Carbon Dioxide 28 mmol/L (22-30); Chloride 99 mmol/L (98-107); Estimated Glomerular Filt Rate > 60; Glucose 120 mg/dL (65-105); Lipase 291 U/L (23-300); Potassium 3.2 mmol/L (3.4-5.0); Sodium 133 mmol/L (137-145)
== END 2020-07-01 10:34 | disposition home or self-care (01) ==
LOC: ANHLAB 10:35
PROVIDERS: PCP Pediatrics; Visit Provider Surgery
DX: K80.44 Calculus of bile duct with chronic cholecystitis without obstruction (principal)
CPT/HCPCS: 36415; 80053; 83690; 85027

== ENCOUNTER 2020-07-08 08:53 | Outpatient (CLI) | payer BC, SELFPAY ==
[2020-07-08 09:47] LABS: Basophils Absolute Auto 0.1 K/mm3 (0.0-0.1); Basophils Percent Auto 0.5 % (0.2-1.2); Eosinophils Absolute Auto 0.2 K/mm3 (0-0.3); Eosinophils Percent Auto 1.7 % (0-4.4); Hematocrit 43.2 % (37.0-47.0); Immature Granulocyte Absolute 0.28 K/mm3 (0.00-0.031); Immature Granulocyte Percent A 2.1 % (0-0.5); Lymphocytes Absolute Auto 2.14 K/mm3 (0.9-3.2); Lymphocytes Percent Auto 15.7 % (18.3-44.2); Mean Corpuscular HGB Conc 32.4 g/dl (32-36); Mean Corpuscular Hemoglobin 28.2 pg (26-34); Mean Corpuscular Volume 87.1 fl (80-100); Mean Platelet Volume 9.5 fl (7.4-10.4); Monocytes Absolute Auto 0.9 K/mm3 (0.1-0.6); Monocytes Percent Auto 6.3 % (2.6-8.5); Neutrophils Absolute Auto 10.1 K/mm3 (1.3-6.7); Neutrophils Percent Auto 73.7 % (45.5-73.1); Platelet Count Result 547 k/mm3 (150-375); Red Blood Count 4.96 M/mm3 (4.2-5.4); Red Cell Distribution Width 12.6 % (11.5-14.5); White Blood Count 13.7 K/mm3 (4.5-10.0)
[2020-07-08 10:01] LABS: Alanine Aminotransferase 187 U/L (4-35); Albumin Level 3.7 g/dL (3.5-5.1); Alkaline Phosphatase 259 U/L (38-126); Anion Gap 6 mmol/L (8-16); Aspartate Amino Transferase 109 U/L (14-36); Bilirubin,Total 0.6 mg/dL (0.2-1.3); Blood Urea Nitrogen 8 mg/dL (7-17); Calcium 8.7 mg/dL (8.4-10.2); Carbon Dioxide 35 mmol/L (22-30); Chloride 97 mmol/L (98-107); Estimated Glomerular Filt Rate > 60; Glucose 104 mg/dL (65-105); Lipase 583 U/L (23-300); Potassium 3.5 mmol/L (3.4-5.0); Sodium 138 mmol/L (137-145)
== END 2020-07-08 08:54 | disposition home or self-care (01) ==
PROVIDERS: PCP Pediatrics; Visit Provider Surgery
DX: R10.9 Unspecified abdominal pain (principal)
CPT/HCPCS: 36415; 80053; 83690; 85025

== ENCOUNTER 2020-07-15 08:24 | Outpatient (CLI) | payer BC, SELFPAY ==
[2020-07-15 08:47] LABS: Hematocrit 42.8 % (37.0-47.0); Mean Corpuscular HGB Conc 32.7 g/dl (32-36); Mean Corpuscular Hemoglobin 28.4 pg (26-34); Mean Corpuscular Volume 86.8 fl (80-100); Mean Platelet Volume 9.1 fl (7.4-10.4); Platelet Count Result 470 k/mm3 (150-375); Red Blood Count 4.93 M/mm3 (4.2-5.4); Red Cell Distribution Width 12.4 % (11.5-14.5); White Blood Count 6.8 K/mm3 (4.5-10.0)
[2020-07-15 08:56] LABS: Alanine Aminotransferase 47 U/L (4-35); Alkaline Phosphatase 131 U/L (38-126); Anion Gap 5 mmol/L (8-16); Aspartate Amino Transferase 39 U/L (14-36); Bilirubin,Total 0.4 mg/dL (0.2-1.3); Blood Urea Nitrogen 11 mg/dL (7-17); Calcium 9.2 mg/dL (8.4-10.2); Carbon Dioxide 33 mmol/L (22-30); Chloride 102 mmol/L (98-107); Estimated Glomerular Filt Rate > 60; Glucose 99 mg/dL (65-105); Lipase 402 U/L (23-300); Potassium 3.7 mmol/L (3.4-5.0); Sodium 140 mmol/L (137-145)
== END 2020-07-15 08:25 | disposition home or self-care (01) ==
PROVIDERS: PCP Pediatrics; Visit Provider Surgery
DX: K80.44 Calculus of bile duct with chronic cholecystitis without obstruction (principal)
CPT/HCPCS: 36415; 80053; 83690; 85027